=== PATIENT | female | born 1980 | race Hispanic/Latino ===

== ENCOUNTER 2018-02-05 05:32 | Emergency (ER) | payer OTHER ==
[2018-02-05] MEDS ORDERED: ONDANSETRON HCL 4 MG/2 ML VIAL ONE (05:42)
[2018-02-05 05:51] LABS: BASOPHILS % (AUTO) 0.6 % (0.0-5.0); EOSINOPHILS % (AUTO) 2.7 % (0.0-8.0); HEMATOCRIT 42.9 % (36-48); LYMPHOCYTES % (AUTO) 18.2 % (21.0-51.0); MEAN CORPUSCULAR HGB CONC 33.9 g/dL (32.0-36.0); MEAN CORPUSCULAR VOLUME 91.5 fL (79-99); MONOCYTES % (AUTO) 7.5 % (3.0-13.0); NUCLEATED RED BLOOD CELLS 0.1 % (0.0-0.19); PLATELET COUNT (AUTO) 176 K/uL (130-400); RED BLOOD CELL COUNT(AUTO) 4.69 MIL/uL (4.00-5.50); RED CELL DISTRIBUTION WIDTH 13.2 % (11.0-15.5); WHITE BLOOD COUNT (AUTO) 8.5 K/uL (4.8-10.8)
[2018-02-05 06:03] LABS: APPEARANCE,URINE Clear (CLEAR); BILIRUBIN,URINE Negative (NEGATIVE); COLOR,URINE Yellow (YELLOW); GLUCOSE, URINE (UA) Negative (NEGATIVE); KETONES,URINE Negative (NEGATIVE); LEUKOCYTE ESTERASE ,URINE Small (NEGATIVE); NITRATE,URINE Negative (NEGATIVE); OCCULT BLOOD,URINE Small (NEGATIVE); PH,URINE 6.5 (5.0-8.0); PROTEIN,URINE POS 1+ (NEGATIVE)
[2018-02-05] MEDS ORDERED: LIDOCAINE HCL 2% VISCOUS 15 ML UDCUP ONE (06:03)
[2018-02-05] MEDS ORDERED: KETOROLAC TROMETHAMINE 30MG/ML ONE (06:03)
[2018-02-05] MEDS ORDERED: MAGNESIUM HYDROXIDE 30 ML/UDCUP ONE (06:04)
[2018-02-05 06:05] LABS: HCG,QUAL RESULT NEGATIVE (NEGATIVE)
[2018-02-05 06:07] LABS: CREATININE 0.7 mg/dL (0.5-1.5); POTASSIUM 3.5 mmol/L (3.5-5.1)
[2018-02-05 06:09] LABS: BACTERIA,URINE None Seen /HPF (None Seen); MUCUS,URINE Rare LPF (None Seen); RBC,URINE 0-1 /HPF (0-1); SQUAMOUS EPITHELIAL CELL,UR Few /HPF (0-2); WBC,URINE 0-1 /HPF (0-1)
[2018-02-05 06:09] LABS: ALBUMIN 3.8 g/dL (3.5-5.0); BILIRUBIN,DIRECT 0.1 mg/dL (0.0-0.3); BILIRUBIN,TOTAL 0.5 mg/dL (0.2-1.0); TOTAL PROTEIN, SERUM 7.6 g/dL (6.0-8.3)
[2018-02-05 06:10] LABS: AMPHET/METH SCREEN,URINE NEGATIVE (NEGATIVE); BARBITURATE SCREEN, URINE NEGATIVE (NEGATIVE); BENZODIAZEPINES SCREEN,URINE NEGATIVE (NEGATIVE); CANNABINOID SCREEN,URINE NEGATIVE (NEGATIVE); COCAINE SCREEN,URINE NEGATIVE (NEGATIVE); OPIATE SCREEN,URINE NEGATIVE (NEGATIVE); PHENCYCLIDINE SCREEN,URINE NEGATIVE (NEGATIVE)
== END 2018-02-05 06:42 | disposition home or self-care (01) ==
LOC: EDH 05:32
DX: K29.00 Acute gastritis without bleeding (principal)
CPT/HCPCS: 36415; 76705; 80048; 80076; 80305; 81001; 81025; 83690; 85025; 96374; 96375; 99285; J1885; J2405

== ENCOUNTER 2019-11-25 16:44 | Emergency (ER) | payer OTHER ==
[2019-11-25] MEDS ORDERED: MAG HYDROX/AL HYDROX/SIMETH ES 30 ML SUSP UDCUP ONE (17:18)
[2019-11-25] MEDS ORDERED: LIDOCAINE HCL 2% VISCOUS 15 ML UDCUP ONE (17:18)
[2019-11-25] MEDS ORDERED: SUCRALFATE 1 GM TABLET ONE (17:54)
[2019-11-25 18:05] LABS: APPEARANCE,URINE Clear (CLEAR); BILIRUBIN,URINE Negative (NEGATIVE); COLOR,URINE Yellow (YELLOW); GLUCOSE, URINE (UA) Negative (NEGATIVE); KETONES,URINE Trace mg/dL (NEGATIVE); LEUKOCYTE ESTERASE ,URINE Negative (NEGATIVE); NITRATE,URINE Negative (NEGATIVE); OCCULT BLOOD,URINE Small (NEGATIVE); PROTEIN,URINE Negative (NEGATIVE)
[2019-11-25 19:31] LABS: BACTERIA,URINE Few /HPF (None Seen); RBC,URINE 0-1 /HPF (0-1); SQUAMOUS EPITHELIAL CELL,UR Few /HPF (0-2)
== END 2019-11-25 18:53 | disposition home or self-care (01) ==
LOC: EDH 16:44
DX: K29.70 Gastritis, unspecified, without bleeding (principal)
CPT/HCPCS: 81001

== ENCOUNTER 2021-12-27 05:15 | Emergency (ER) | payer BC ==
[~2021-12-27] VITALS: Ht 154.9 cm; Wt 76.2 kg
[2021-12-27] MEDS ORDERED: ONDANSETRON 4MG INJ IVP ONE (05:30)
[2021-12-27] MEDS ORDERED: MAG/ALUM/SIMETH 30 ML UDCUP PO ONE (05:30)
[2021-12-27] MEDS ORDERED: LIDOCAINE HCL 2% VISCOUS 15 ML UDCUP PO ONE (05:30)
[2021-12-27] MEDS ORDERED: DICYCLOMINE HCL 10 MG/5 ML ML PO ONE (05:30)
[2021-12-27] MEDS ORDERED: PANTOPRAZOLE 40 MG/VIAL IVP ONE (05:30)
[2021-12-27 05:45] LABS: BASOPHILS % (AUTO) 0.3 % (0.0-5.0); EOSINOPHILS % (AUTO) 3.5 % (0.0-8.0); HEMATOCRIT 42.3 % (36-48); LYMPHOCYTES % (AUTO) 20.8 % (21.0-51.0); MEAN CORPUSCULAR HEMOGLOBIN 30.9 pg (27.0-33.0); MEAN CORPUSCULAR HGB CONC 32.6 g/dL (32.0-36.0); MEAN CORPUSCULAR VOLUME 94.6 fL (79-99); MONOCYTES % (AUTO) 6.3 % (3.0-13.0); NEUTROPHILS % (AUTO) 68.9 % (40.0-77.0); PLATELET COUNT (AUTO) 201 K/uL (130-400); RED BLOOD CELL COUNT(AUTO) 4.47 MIL/uL (4.00-5.50); WHITE BLOOD COUNT (AUTO) 6.5 K/uL (4.8-10.8)
[2021-12-27] MEDS ORDERED: SUCRALFATE 1 GM TABLET PO SCH (06:00)
[2021-12-27 06:03] LABS: ALBUMIN 3.2 g/dL (3.5-5.0); CREATININE 0.8 mg/dL (0.5-1.5); POTASSIUM 3.3 mmol/L (3.5-5.1); TOTAL PROTEIN, SERUM 6.4 g/dL (6.0-8.3)
[2021-12-27] MEDS ORDERED: SUCRALFATE 1 GM TABLET ONE (06:08)
[2021-12-27] MEDS ORDERED: SUCR1TAB2 PO (06:37)
[2021-12-27] MEDS ORDERED: ESOM20TA PO (06:37)
[2021-12-27 06:46] VITALS: BP 136/62
== END 2021-12-27 06:47 | disposition home or self-care (01) ==
LOC: EDH 05:15
DX: K29.70 Gastritis, unspecified, without bleeding (principal); I10 Essential (primary) hypertension
CPT/HCPCS: 99284; 96374; 96375; 80053; 83690; 85025; 36415; J2405; C9113

== ENCOUNTER 2022-04-08 19:36 | Emergency (ER) | payer BC ==
[~2022-04-08] VITALS: Ht 154.9 cm; Wt 78.9 kg
[~2022-04-08 19:36] MED LIST: ESOM20TA PO; SUCR1TAB2 PO
[2022-04-08] MEDS ORDERED: IBUPROFEN 600 MG TABLET PO ONE (20:30)
[2022-04-08 21:08] LABS: BASOPHILS % (AUTO) 0.3 % (0.0-5.0); EOSINOPHILS % (AUTO) 1.3 % (0.0-8.0); HEMATOCRIT 42.7 % (36-48); LYMPHOCYTES % (AUTO) 11.7 % (21.0-51.0); MEAN CORPUSCULAR HEMOGLOBIN 30.9 pg (27.0-33.0); MEAN CORPUSCULAR VOLUME 93.6 fL (79-99); MONOCYTES % (AUTO) 5.4 % (3.0-13.0); NEUTROPHILS % (AUTO) 80.8 % (40.0-77.0); PLATELET COUNT (AUTO) 202 K/uL (130-400); RED BLOOD CELL COUNT(AUTO) 4.56 MIL/uL (4.00-5.50); RED CELL DISTRIBUTION WIDTH 12.7 % (11.0-15.5); WHITE BLOOD COUNT (AUTO) 11.7 K/uL (4.8-10.8)
[2022-04-08 21:11] LABS: APPEARANCE,URINE CLEAR (CLEAR); BILIRUBIN,URINE NEGATIVE (NEGATIVE); COLOR,URINE COLORLESS (YELLOW); GLUCOSE, URINE (UA) NEGATIVE (NEGATIVE); KETONES,URINE NEGATIVE (NEGATIVE); LEUKOCYTE ESTERASE ,URINE NEGATIVE Leu/uL (NEGATIVE); NITRATE,URINE NEGATIVE (NEGATIVE); OCCULT BLOOD,URINE NEGATIVE (NEGATIVE); PH,URINE 5.5 (5.0-8.0); PROTEIN,URINE NEGATIVE (NEGATIVE); UROBILINOGEN,URINE 0.2 mg/dL (0.2-1.0)
[2022-04-08 21:12] LABS: MUCUS,URINE RARE LPF (None Seen); RBC,URINE 0-1 /HPF (0-1); SQUAMOUS EPITHELIAL CELL,UR RARE /HPF (0-2); WBC,URINE 0-1 /HPF (0-1)
[2022-04-08 21:13] LABS: HCG,QUALITATIVE URINE NEGATIVE (NEGATIVE)
[2022-04-08 21:16] LABS: CREATININE 0.8 mg/dL (0.5-1.5); POTASSIUM 3.6 mmol/L (3.5-5.1)
[2022-04-08 21:21] LABS: ALBUMIN 3.8 g/dL (3.5-5.0); TOTAL PROTEIN, SERUM 7.2 g/dL (6.0-8.3)
[2022-04-08] MEDS ORDERED: IOHEXOL 350 MG/ML 100ML INFUS..BTL IV ONE (21:51)
[2022-04-08] MEDS ORDERED: BENZONATATE 100 MG CAPSULE PO SCH (22:00)
[2022-04-08 23:01] VITALS: BP 145/82
[2022-04-08] MEDS ORDERED: BACI30OI6 TP (23:05)
[2022-04-08] MEDS ORDERED: IBUP-2070 PO (23:05)
== END 2022-04-08 23:18 | disposition home or self-care (01) ==
LOC: EDH 19:36
DX: S60.051A Contusion of right little finger without damage to nail, initial encounter (principal); M54.2 Cervicalgia; I10 Essential (primary) hypertension; R07.89 Other chest pain; Z79.1 Long term (current) use of non-steroidal anti-inflammatories (NSAID); V89.2XXA Person injured in unspecified motor-vehicle accident, traffic, initial encounter; Y92.488 Other paved roadways as the place of occurrence of the external cause; Y93.89 Activity, other specified; Y92.89 Other specified places as the place of occurrence of the external cause; Y99.8 Other external cause status
CPT/HCPCS: 99285; 70450; 71045; 80053; 85025; 81001; 81025; 36415; 72125; 70498; Q9967

== ENCOUNTER 2022-10-22 04:05 | Emergency (ER) | payer BC ==
[~2022-10-22] VITALS: Ht 154.9 cm; Wt 79.8 kg
[~2022-10-22 04:05] MED LIST changes: +BACI30OI6 TP; +IBUP-2070 PO
[2022-10-22 04:27] LABS: BILIRUBIN,URINE NEGATIVE (NEGATIVE); COLOR,URINE LIGHT-YELLOW (YELLOW); GLUCOSE, URINE (UA) NEGATIVE (NEGATIVE); KETONES,URINE NEGATIVE (NEGATIVE); LEUKOCYTE ESTERASE ,URINE 250 Leu/uL (NEGATIVE); NITRATE,URINE NEGATIVE (NEGATIVE); OCCULT BLOOD,URINE NEGATIVE (NEGATIVE); PROTEIN,URINE NEGATIVE (NEGATIVE); UROBILINOGEN,URINE 0.2 mg/dL (0.2-1.0)
[2022-10-22 04:39] LABS: APPEARANCE,URINE SLIGHTLY CLOUDY (CLEAR)
[2022-10-22 04:41] LABS: MUCUS,URINE RARE LPF (None Seen); SQUAMOUS EPITHELIAL CELL,UR FEW /HPF (0-2)
[2022-10-22] MEDS ORDERED: FAMOTIDINE 20MG VIAL IV STA (04:52)
[2022-10-22] MEDS ORDERED: MAG/ALUM/SIMETH 30 ML UDCUP ONE (04:54)
[2022-10-22 04:59] LABS: BASOPHILS % (AUTO) 0.6 % (0.0-5.0); EOSINOPHILS % (AUTO) 3.4 % (0.0-8.0); HEMATOCRIT 39.8 % (36-48); LYMPHOCYTES % (AUTO) 21.8 % (21.0-51.0); MEAN CORPUSCULAR HEMOGLOBIN 29.5 pg (27.0-33.0); MEAN CORPUSCULAR HGB CONC 32.7 g/dL (32.0-36.0); MEAN CORPUSCULAR VOLUME 90.5 fL (79-99); MONOCYTES % (AUTO) 7.6 % (3.0-13.0); NEUTROPHILS % (AUTO) 66.3 % (40.0-77.0); PLATELET COUNT (AUTO) 187 K/uL (130-400); RED CELL DISTRIBUTION WIDTH 13.5 % (11.0-15.5); WHITE BLOOD COUNT (AUTO) 6.9 K/uL (4.8-10.8)
[2022-10-22] MEDS ORDERED: LACTATED RINGERS 1000ML 1,000 ML IV ONE (05:00)
[2022-10-22] MEDS ORDERED: LIDOCAINE HCL 2% VISCOUS 15 ML UDCUP PO ONE (05:00)
[2022-10-22] MEDS ORDERED: FAMOTIDINE 20MG TAB PO ONE (05:00)
[2022-10-22 05:22] LABS: CARBON DIOXIDE 27 mmol/L (21-32); CHLORIDE 104 mmol/L (101-111); CREATININE 0.8 mg/dL (0.5-1.5); GLOMERULAR FILTR. RATE CALC 93 mL/min (>90); GLUCOSE,RANDOM 113 mg/dL (70-105); POTASSIUM 3.5 mmol/L (3.5-5.1); SODIUM SERUM 139 mmol/L (136-145); UREA NITROGEN, BLOOD 7 mg/dL (7-18)
[2022-10-22 05:26] LABS: ALANINE AMINOTRANSFERASE 39 U/L (12-78); ALBUMIN 3.2 g/dL (3.5-5.0); ASPARTATE AMINOTRANSFERASE 29 U/L (10-37); HCG,QUANTITATIVE 0 mIU/mL (0-5); TOTAL PROTEIN, SERUM 6.3 g/dL (6.0-8.3)
[2022-10-22 05:27] LABS: LIPASE < 50 U/L (114-286)
[2022-10-22] MEDS ORDERED: CEFTRIAXONE 2GM VIAL IVPB ONE (06:00)
[2022-10-22] MEDS ORDERED: PANT40TA PO (06:24)
[2022-10-22] MEDS ORDERED: CEPH500B PO (06:24)
[2022-10-22] MEDS ORDERED: METO-296 PO (06:24)
[2022-10-22] MEDS ORDERED: MORPHINE 2 MG SYG IVP ONE (06:30)
[2022-10-22 07:09] VITALS: BP 129/74
== END 2022-10-22 07:11 | disposition home or self-care (01) ==
LOC: EDH 04:05
DX: K29.70 Gastritis, unspecified, without bleeding (principal); N39.0 Urinary tract infection, site not specified; I10 Essential (primary) hypertension
CPT/HCPCS: 99284; 96365; 96361; 96375; 84484; 80053; 84702; 83690; 85025; 87088; 81001; 36415; 74021; 93005; J7120; J3490; J2270; J0696